=== PATIENT | female | born 1965 | race Caucasian/White ===

== ENCOUNTER → 2017-09-04 | Outpatient (CLI) | payer MEDICARE ==
--- NOTE | 2017-09-04 14:15 | US ---
EXAMINATION TYPE: US pelvic complete DATE OF EXAM: 09/04/2017 COMPARISON: NONE CLINICAL HISTORY: N95.0 Post Menopausal Bleeding. Intermittent bleeding and left pelvic cramping x 2 weeks, 3, para 3, miscarriage 1, history of partial hysterectomy 2010, tubal ligation and abl ation. TECHNIQUE: Transvaginal (TV) and Transabdominal (TA) Date of LMP: 2009 EXAM MEASUREMENTS: Uterus: surgically absent Endometrial Stripe: surgically absent Right Ovary: not seen Left Ovary: not seen 1. Uterus: surgically absent 2. Endometrium: surgically absent 3. Right Ovary: not seen due to overlying bowel gas 4. Left Ovary: not seen due to overlying bowel gas 5. Bilateral Adnexa: wnl 6. Posterior cul-de-sac: wnl IMPRESSION: 1. Postsurgical changes with no acute process.
== END | disposition home or self-care (01) ==
LOC: RADUSWWP 13:30
PROVIDERS: ATTEND Family Medicine
DX: N95.0 Postmenopausal bleeding (principal); Z98.890 Other specified postprocedural states
CPT/HCPCS: 76830; 76856